=== PATIENT | male | born 1980 | race African-American/Black ===

== ENCOUNTER 2022-03-09 12:22 | Emergency (ER) | payer SELFPAY ==
[~2022-03-09] VITALS: Ht 177.8 cm; Wt 76.0 kg
[2022-03-09 12:37] VITALS: BP 132/104
== END 2022-03-09 12:56 ==
LOC: ER 12:22
DX: Z02.89 Encounter for other administrative examinations (principal); F20.9 Schizophrenia, unspecified
CPT/HCPCS: 99283